=== PATIENT | male | born 1995 | race Caucasian/White ===

== ENCOUNTER 2021-10-24 16:13 | Emergency (ER) | payer OTHER, SELFPAY ==
[2021-10-24 16:21] VITALS: BP 145/90; PULSE 90; RESP 16; TEMP 37.4; O2SAT 98
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
== END 2021-10-24 16:48 | disposition home or self-care (01) ==
PROVIDERS: Emergency Provider Nurse Practitioner
DX: T24.202A Burn of second degree of unspecified site of left lower limb, except ankle and foot, initial encounter (principal); B96.89 Other specified bacterial agents as the cause of diseases classified elsewhere; X16.XXXA Contact with hot heating appliances, radiators and pipes, initial encounter
CPT/HCPCS: 99213; G0463